=== PATIENT | male | born 2000 | race Caucasian/White ===

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

== ENCOUNTER 2019-11-24 00:59 | Emergency (ER) | payer SELFPAY ==
[2019-11-24] MEDS ORDERED: Lidocaine/EPINEPHrine/Tetracaine Soln 5 ML Each TOP ONE (01:11)
--- NOTE | 2019-11-24 02:10 | EDM.PDOC ---
ED HPI GENERAL MEDICAL PROBLEM - General Chief Complaint: Laceration Stated Complaint: HURT THUMB Time Seen by Provider: 11/24/19 01:00 Source of Information: Reports: Patient History Limitations: Reports: No Limitations - History of Present Illness INITIAL COMMENTS - FREE TEXT/NARRATIVE: Patient presented to the ED because of a left thumb injury. He fell and his thumb got caught in between cement. There is a 3 cm laceration over the ventral aspect of the left thumb. He is able to flex and extend his thumb without any difficulty. left thumb Pain Score (Numeric/FACES): 4 - Related Data Allergies Allergy/AdvReac Type Severity Reaction Status Date / Time No Known Allergies Allergy Verified 10/05/18 01:59 Home Meds: Home Meds . [Unable to Verify Home Med List] 10/05/18 [History] ED ROS GENERAL - Review of Systems Review Of Systems: See Below Constitutional: Reports: No Symptoms HEENT: Reports: No Symptoms Respiratory: Reports: No Symptoms Cardiovascular: Reports: No Symptoms Endocrine: Reports: No Symptoms GI/Abdominal: Reports: No Symptoms : Reports: No Symptoms Musculoskeletal: Reports: No Symptoms Skin: Reports: No Symptoms Neurological: Reports: No Symptoms Psychiatric: Reports: No Symptoms Hematologic/Lymphatic: Reports: No Symptoms ED EXAM, SKIN/RASH Exam: See Below Exam Limited By: No Limitations General Appearance: Alert, No Apparent Distress Ears: Normal External Exam Nose: Normal Inspection Throat/Mouth: Normal Inspection Head: Atraumatic Neck: Normal Inspection Respiratory/Chest: No Respiratory Distress Cardiovascular: Normal Peripheral Pulses, Regular Rate, Rhythm, No JVD, No Murmur GI/Abdominal: Normal Bowel Sounds, Soft, Non-Tender Back Exam: Normal Inspection, Full Range of Motion Extremities: Normal Inspection, Normal Range of Motion Neurological: Alert, Oriented, CN II-XII Intact Psychiatric: Normal Affect Skin: Warm, Dry, Intact ED SKIN PROCEDURES - Laceration/Wound Repair Left Digit - 1st (Thumb) Appearance: Superficial Distal NVT: Neuro & Vascular Intact Anesthetic Type: Local Local Anesthesia - Lidocaine (Xylocaine): 1% Plain Local Anesthetic Volume: 2cc Skin Prep: Chlorhexidine (Hibiciens), Saline Exploration/Debridement/Repair: Other Closed with: Sutures Lac/Wound length In cm: 3 Suture Size: 3-0 Suture Type: Silk Course - Vital Signs Text/Narrative:: UTD with immunization Last Recorded V/S: Last Vital Signs Temp 36.5 C 11/24/19 00:59 Pulse 116 H 11/24/19 00:59 Resp 15 11/24/19 00:59 BP 156/88 H 11/24/19 00:59 Pulse Ox 99 11/24/19 00:59 - Orders/Labs/Meds Meds: Medications Discontinued Medications Generic Name Dose Route Start Last Admin Trade Name Freq PRN Reason Stop Dose Admin Lidocaine/Tetracaine 5 ml 11/24/19 01:11 11/24/19 01:20 Let Soln TOP 11/24/19 01:12 5 ml ONETIME ONE Administration Departure - Departure Time of Disposition: 02:30 Disposition: Home, Self-Care 01 Condition: Good Clinical Impression: Laceration - Discharge Information Instructions: Laceration Care, Adult, [id number] Referrals: PCP,None [Primary Care Provider] - Forms: ED Department Discharge Additional Instructions: Please read discharge instructions on laceration No need to apply an antibiotic ointment Do not cover your wound if your inside the house Removal of suture in your clinic after 24 days Sepsis Event Note (ED) - Evaluation Sepsis Screening Result: No Definite Risk - Focused Exam Vital Signs: Vital Signs Temp Pulse Resp BP Pulse Ox 11/24/19 00:59 36.5 C 116 H 15 156/88 H 99
== END 2019-11-24 02:22 | disposition home or self-care (01) ==
LOC: FB.ED 00:59
DX: S61.012A Laceration without foreign body of left thumb without damage to nail, initial encounter (principal); W19.XXXA Unspecified fall, initial encounter
CPT/HCPCS: 12002; 99282; A9270; J2001